=== PATIENT | male | born 1985 | race Caucasian/White ===

== ENCOUNTER 2017-05-19 07:07 | Emergency (ER) | payer SELFPAY ==
[~2017-05-19] VITALS: Ht 167.6 cm; Wt 62.1 kg
--- NOTE | 2017-05-19 07:09 | NUR ---
N/V/D X LAST NIGHT W/ ABD SHARP PAIN LOW BACK PAIN
[2017-05-19] MEDS ORDERED: KETOROLAC TROMETHAMINE 15 MG/ML VIAL ONE (07:25)
[2017-05-19] MEDS ORDERED: ONDANSETRON HCL/PF 4 MG/2 ML VIAL ONE (07:25)
[2017-05-19] MEDS ORDERED: ONDANSETRON HCL/PF 4 MG/2 ML VIAL IVP ONE (07:30)
[2017-05-19] MEDS ORDERED: IV NS 0.9% 1,000 ML BAG IV ONE (07:30)
[2017-05-19] MEDS ORDERED: KETOROLAC TROMETHAMINE INJ 30 MG/ML VIAL IV ONE (07:30)
--- NOTE | 2017-05-19 08:17 | NUR ---
Patient discharged to home in stable condition. Written and verbal after care instructions given. Patient verbalizes understanding of instruction.
--- NOTE | 2017-05-19 08:17 | NUR ---
IV removed. Catheter intact and site benign. Pressure and 4x4 applied to site. No bleeding noted.
[2017-05-19 08:19] VITALS: BP 130/85
== END 2017-05-19 08:25 | disposition home or self-care (01) ==
LOC: ER 07:08
DX: A08.4 Viral intestinal infection, unspecified (principal)
CPT/HCPCS: 96361; 96374; 96375; 99284; A4606; J1885; J2405; J7030; Z7610